=== PATIENT | male | born 1960 | race Two or more races ===

== ENCOUNTER 2019-01-05 11:31 | Emergency (ER) | payer OTHER, SELFPAY ==
[~2019-01-05] VITALS: Ht 180.3 cm; Wt 79.1 kg
[~2019-01-05 11:31] MED LIST: ASPI-556 PO; ATOR40TA28 PO; GLIP5TAB11 PO; INSU100C4 SQ; LISI-622 PO; METF-444 PO; METO1TAB14 PO; NITR0.4T50 SL
[2019-01-05] MEDS ORDERED: TAMS-1 PO (11:54)
[2019-01-05] MEDS ORDERED: AMLO10TA7 PO (11:54)
[2019-01-05] MEDS ORDERED: CLOP75TA3 PO (11:54)
[2019-01-05] MEDS ORDERED: ATOR40TA28 PO (11:54)
[2019-01-05] MEDS ORDERED: CAPS42.513 TP (11:54)
[2019-01-05] MEDS ORDERED: AMIT50TA3 PO (11:54)
[2019-01-05] MEDS ORDERED: NAPR-1025 PO (11:54)
[2019-01-05] MEDS ORDERED: LISI-662 PO (11:54)
[2019-01-05] MEDS ORDERED: CEPH500 PO (11:54)
[2019-01-05] MEDS ORDERED: INSLAN SQ (11:54)
[2019-01-05 11:57] LABS: GLUCOSE,POINT OF CARE 172 MG/DL (70-110)
[2019-01-05 12:30] VITALS: BP 115/69
[2019-01-05 12:49] LABS: BASOPHILS % (AUTO) 1.1 % (0.0-2.0); EOSINOPHILS % (AUTO) 4.3 % (1.0-6.0); HEMATOCRIT 44.1 % (41-53); HEMOGLOBIN 14.5 g/dL (13.5-17.5); LYMPHOCYTES # (AUTO) 3.6 K/uL (1.0-4.8); LYMPHOCYTES % (AUTO) 40.5 % (22.0-44.0); MEAN CORPUSCULAR HEMOGLOBIN 30.3 pg (26.0-34.0); MEAN CORPUSCULAR HGB CONC 32.9 G/dL (31.0-37.0); MEAN CORPUSCULAR VOLUME 92 fL (80-100); MONOCYTES # (AUTO) 0.6 K/uL (0.1-1.0); MONOCYTES % (AUTO) 6.9 % (2.0-9.0); NEUTROPHILS # (AUTO) 4.2 K/uL (1.8-7.7); NEUTROPHILS % (AUTO) 47.2 % (40.0-70.0); PLATELET COUNT (AUTO) 223 K/uL (150-450); RED BLOOD CELL COUNT(AUTO) 4.78 MIL/uL (4.50-5.90); RED CELL DISTRIBUTION WIDTH 13.4 % (11.5-14.5)
[2019-01-05 13:06] LABS: ANION GAP 9 mmol/L (8-16); CARBON DIOXIDE 26 mmol/L (22-29); CHLORIDE 103 mmol/L (98-107); GLUCOSE,RANDOM 139 mg/dL (70-110); POTASSIUM 3.7 mmol/L (3.5-5.1); SODIUM SERUM 138 mmol/L (136-145); UREA NITROGEN, BLOOD 12 mg/dL (7-18)
[2019-01-05 13:07] LABS: CALCIUM, TOTAL 9.1 mg/dL (8.8-10.5); GLOMERULAR FILTR. RATE CALC > 60 mL/min (>60)
== END 2019-01-05 13:44 | disposition home or self-care (01) ==
LOC: EMS 11:32
DX: I10 Essential (primary) hypertension (principal); I48.91 Unspecified atrial fibrillation; E11.9 Type 2 diabetes mellitus without complications; F17.210 Nicotine dependence, cigarettes, uncomplicated; Z79.82 Long term (current) use of aspirin; Z79.4 Long term (current) use of insulin; Z79.899 Other long term (current) drug therapy
CPT/HCPCS: 93005